=== PATIENT | female | born 1965 | race Caucasian/White ===

== ENCOUNTER 2016-07-22 05:44 | Inpatient (IN) ==
[2016-07-22] MEDS ORDERED: VANCOMYCIN INJ 1,000 MG in SODIUM CHLORIDE 0.9% 250 ML IV ONE (06:00)
[2016-07-22] MEDS ORDERED: SODIUM CHLORIDE 0.9% 100 ML IV ONE (07:19)
[2016-07-22] MEDS ORDERED: VANCOMYCIN 1,000 MG VIAL ONE (07:19)
[2016-07-22] MEDS ORDERED: ceFAZolin 1,000 MG VIAL ONE (07:19)
[2016-07-22] MEDS ORDERED: DIAZEPAM 5 MG TABLET PO ONE (08:34)
[2016-07-22] MEDS ORDERED: FAMOTIDINE 20 MG TABLET PO ONE (08:34)
[2016-07-22] MEDS ORDERED: ALBUTEROL/IPRATROPIUM 3 ML NEB RESP TX ONE (08:37)
[2016-07-22] MEDS ORDERED: DIAZEPAM 5 MG TABLET ONE (08:38)
[2016-07-22] MEDS ORDERED: FAMOTIDINE 20 MG TABLET ONE (08:39)
[2016-07-22] MEDS ORDERED: BUPIVACAINE 0.5% 50 ML VIAL ONE (08:40)
[2016-07-22] MEDS ORDERED: EPINEPHrine 1 MG/ML VIAL ONE (08:40)
[2016-07-22] MEDS ORDERED: MORPHINE 10 MG/1 ML VIAL ONE (08:41)
[2016-07-22] MEDS ORDERED: LACTATED RINGERS 1,000 ML IV SCH (10:30)
[2016-07-22] MEDS ORDERED: ALBUTEROL 2.5 MG/3 ML NEB RESP TX ONE (10:55)
[2016-07-22] MEDS ORDERED: ONDANSETRON 4 MG/2 ML VIAL ONE (11:30)
[2016-07-22] MEDS ORDERED: PROPOFOL 200 MG/20 ML VIAL IV ONE (11:30)
[2016-07-22] MEDS ORDERED: LIDOCAINE 1% 5 ML VIAL ONE (11:30)
[2016-07-22] MEDS ORDERED: PROPOFOL 500 MG/50 ML BOTTLE IV ONE (11:30)
[2016-07-22] MEDS ORDERED: MAGNESIUM HYDROXIDE SUSP 30 ML UDCUP PO PRN (13:03)
[2016-07-22] MEDS ORDERED: TEMAZEPAM 7.5 MG CAPSULE PO PRN (13:03)
[2016-07-22] MEDS ORDERED: ONDANSETRON 4 MG/2 ML VIAL IV PRN (13:03)
[2016-07-22] MEDS ORDERED: NALOXONE 0.4 MG/ML VIAL IV PRN (13:03)
[2016-07-22] MEDS ORDERED: ROPIVACAINE 0.5% 30 ML VIAL ONE (13:14)
--- NOTE | 2016-07-22 13:18 | Anesthesia Post-Op ---
Anesthesia Post OP - Post Ansesthetic Evaluation Patient seen in post op: Yes Resp: within normal limits CV: within normal limits Mental: within normal limits Temp: within normal limits [id number]: within normal limits Nausea and Vomiting: within normal limits Pain: within normal limits
[2016-07-22] MEDS ORDERED: SODIUM CHLORIDE 0.9% 200 ML IV ONE (13:19)
[2016-07-22] MEDS ORDERED: MIDAZOLAM 2 MG/2 ML VIAL ONE (13:19)
[2016-07-22] MEDS ORDERED: fentaNYL 100 MCG/2 ML VIAL ONE (13:19)
[2016-07-22] MEDS ORDERED: LACTATED RINGERS 1,000 ML IV ONE (13:19)
[2016-07-22] MEDS ORDERED: ACETAMINOPHEN 1,000 MG/100 ML VIAL IV ONE (13:20)
[2016-07-22] MEDS ORDERED: TRANEXAMIC ACID 1,000 MG/10 ML VIAL IV ONE (13:21)
--- NOTE | 2016-07-22 14:27 | XRay Report ---
Exam: XR knee 2V LT Date: 07/22/2016 1:04 PM Indication: Joint replacement total knee prosthesis Comparison: 04/06/2016 Technical: AP view lateral Findings: Total knee prosthesis has been placed. Surgical clips and drain are present. There is osteotomy on the posterior aspect patella. There is mild subcutaneous air within the suprapatella bursa. No fractures present. Leg immobilizer noted. Impression: 1. Stable appearance of the left total knee prosthesis 2. Surgical drain and clips present. 3. No fracture dislocation PROCEDURE INTERPRETED AT [facility] Final Report Signed by: Dr. Kris Peck
[2016-07-22] MEDS ORDERED: MORPHINE PCA 30 MG/30 ML SYRINGE IV SCH (15:30)
[2016-07-22] MEDS: SODIUM CHLORIDE 0.9% 1,000 ML IV SCH ×2 (15:45→23:29)
[2016-07-22] MEDS: KETOROLAC 30 MG/1 ML VIAL IV SCH ×2 (15:46→20:55)
[2016-07-22] MEDS: CYCLOBENZAPRINE 10 MG TABLET PO SCH ×2 (15:46→20:53)
--- NOTE | 2016-07-22 17:16 | Pulmonology Progress Note ---
Pulmonary - PN: Subj Interval history: The patient is a 50-year-old white lady that came in today and had a left total knee replacement. She has a very large lady that has osteoarthritis. She is a former smoker that has at least a component of COPD. She does cough and wheeze a good bit at times. She has been using some bronchodilators and did get some steroids preop. She apparently did well with anesthesia today. She is alert now says she is breathing okay. Overall she did well with her surgery Exam (Progress Note) - Constitutional Vitals: Period Temp Pulse Resp BP Sys/Jones Pulse Ox Last 24 Hr 97.2 F-98.4 F 68-93 16-20 93-126/53-73 92-100 General appearance: no acute distress, over weight - Head Head exam: Present: normal inspection, normocephalic - Eye Eye exam: Present: EOMI. Absent: scleral icterus Pupils: Present: LILLIAN - ENT ENT exam: Present: normal exam - Neck Neck exam: Present: normal inspection. Absent: lymphadenopathy, thyromegaly - Respiratory Respiratory exam: Present: rhonchi, other (Her lungs sound better today with less rhonchi and wheezing) - Cardiovascular Cardiovascular exam: Present: regular rate and rhythm. Absent: gallop, systolic murmur - GI/Abdominal GI/Abdominal exam: Present: normal bowel sounds, soft. Absent: organomegaly, tenderness - Extremities Exam Extremities exam: Present: other (The left knee is splinted with the drain in place). Absent: calf tenderness - Neurological Exam Neurological exam: Present: alert, oriented X3, CN II-XII intact - Psychiatric Psychiatric exam: Present: normal affect - Skin Skin exam: Present: warm, dry Assessment and Plan (1) Osteoarthritis of left knee Status: Acute Assessment and plan: The patient has had significant arthritis of her knees and a difficult time getting around. She comes in for knee surgery today. Current Visit: Yes (2) Status post total left knee replacement Status: Acute Assessment and plan: She had a left knee replacement today and is doing well postop. Current Visit: Yes (3) COPD (chronic obstructive pulmonary disease) Status: Acute Assessment and plan: The patient did have some coughing and wheezing recently but is doing better now. Will continue with bronchodilator therapy Current Visit: Yes (4) Obesity Status: Acute Assessment and plan: The patient has a BMI of 58. Current Visit: Yes (5) Diabetes Status: Acute Assessment and plan: Her glucoses will be monitored. Current Visit: Yes Qualifiers: Diabetes mellitus type: type 2
--- NOTE | 2016-07-22 17:27 | Orthopedic Progress Note ---
Assessment and Plan (1) Status post total left knee replacement Status: Acute Assessment and plan: Discontinue Hemovac Routine postop antibiotics DVT prophylaxis Out of bed with therapy twice daily beginning tomorrow Discharge planning Current Visit: Yes Orthopedics - Subjective Interval history: Patient has no complaints postoperatively, pain control. On exam she has some blood on the dressing from a leaking Hemovac Exam - Constitutional Vitals: Period Temp Pulse Resp BP Sys/Jones Pulse Ox Last 24 Hr 97.2 F-98.4 F 68-93 16-20 93-126/53-73 92-100
[2016-07-22 17:48] LABS: Calcium 7.7 MG/DL (8.5-10.1); Osmolality,Calculated 279.3 MOS/KG (273-304); Potassium 3.8 MMOL/L (3.5-5.1)
[2016-07-22] MEDS: ACETAMINOPHEN 500 MG TABLET PO SCH (18:49)
[2016-07-22] MEDS: CIPROFLOXACIN 500 MG TABLET PO SCH (20:52)
[2016-07-22] MEDS: DOCUSATE SODIUM 100 MG CAPSULE PO SCH (20:52)
[2016-07-22] MEDS: ceFAZolin 2,000 MG in PREMIX 1 EACH IV SCH (20:53)
[2016-07-22] MEDS ORDERED: diphenhydrAMINE CAP 25 MG CAPSULE PO PRN (21:00)
[2016-07-23] MEDS: ACETAMINOPHEN 500 MG TABLET PO SCH ×3 (00:56→12:38)
[2016-07-23] MEDS: diphenhydrAMINE CAP 25 MG CAPSULE PO PRN (00:57)
[2016-07-23] MEDS: SODIUM CHLORIDE 0.9% 1,000 ML IV SCH (02:05)
[2016-07-23] MEDS: KETOROLAC 30 MG/1 ML VIAL IV SCH ×2 (04:30→09:20)
[2016-07-23] MEDS: ceFAZolin 2,000 MG in PREMIX 1 EACH IV SCH (05:08)
[2016-07-23 05:09] LABS: Basophils # 0.1 10*3/uL (0.0-0.2); Basophils % 0.6 % (0.0-0.8); Eosinophils # 0.5 10*3/uL (0.0-0.87); Eosinophils % 5.8 % (0.00-10.9); Hematocrit 39.4 VOL% (35.7-47.0); Hemoglobin 12.2 GM/DL (12.0-16.0); Immature Granulocytes % 0.5 %; Immature Granulocytes Absolute 0.04 #; Lymphocytes # 1.1 10*3/uL (1.4-4.0); Lymphocytes % 12.7 % (21.3-54.2); Mean Corpuscular Hemoglobin 29 PG (27-34); Mean Corpuscular Volume 92.3 FL (87-102); Monocytes # 0.9 10*3/uL (0.11-0.8); Neutrophils # 6.2 10*3/uL (1.4-7.4); Neutrophils % 70.4 % (38.7-73.9); Platelet Count 209 T/CUMM (130-400); Red Blood Count 4.27 MC/CUMM (3.8-5.5); Red Cell Distribution Width 14.8 % (9.3-17.3); White Blood Count 8.8 T/CUMM (4-12)
[2016-07-23 05:39] LABS: Calcium 7.4 MG/DL (8.5-10.1)
[2016-07-23 05:40] LABS: Osmolality,Calculated 277.4 MOS/KG (273-304); Potassium 4.3 MMOL/L (3.5-5.1)
[2016-07-23] MEDS: ENOXAPARIN 40 MG/0.4 ML SYRINGE SUBCUT SCH (06:18)
--- NOTE | 2016-07-23 07:46 | Orthopedic Progress Note ---
Assessment and Plan (1) Status post total left knee replacement Status: Acute Assessment and plan: DVT prophylaxis Out of bed with therapy twice daily Discharge planning Current Visit: Yes Orthopedics - Subjective Interval history: Patient complains of mild pain in the knee, otherwise no complaints On exam her dressings clean and dry, she is neurovascularly intact. Exam - Constitutional Vitals: Period Temp Pulse Resp BP Sys/Jones Pulse Ox Last 24 Hr 96.9 F-97.8 F 68-99 16-20 88-126/52-73 89-100 Results - Labs CBC & BMP: 07/23/16 04:55 07/23/16 04:55
--- NOTE | 2016-07-23 08:38 | Pulmonology Progress Note ---
Pulmonary - PN: Subj Interval history: The patient is a 50-year-old white lady that had a left total knee replacement yesterday. She did fairly well through the night and is feeling okay today. Her blood pressure has been on the low side but she is not having any symptoms. She is sitting up eating breakfast now. She feels like her breathing is doing okay. Her knee pain is not too terribly bad today. Exam (Progress Note) - Constitutional Vitals: Period Temp Pulse Resp BP Sys/Jones Pulse Ox Last 24 Hr 96.9 F-97.8 F 65-99 12-20 88-126/43-73 89-100 Exam: General appearance: no acute distress, over weight, she is alert and sitting up and looks comfortable - Head Head exam: Present: normal inspection, normocephalic - Eye Eye exam: Present: EOMI. Absent: scleral icterus Pupils: Present: LILLIAN - ENT ENT exam: Present: normal exam - Neck Neck exam: Present: normal inspection. Absent: lymphadenopathy, thyromegaly - Respiratory Respiratory exam: Present: Her lungs have some minimal wheeze but she is moving air fairly well today. - Cardiovascular Cardiovascular exam: Present: regular rate and rhythm. Absent: gallop, systolic murmur - GI/Abdominal GI/Abdominal exam: Present: normal bowel sounds, soft. Absent: organomegaly, tenderness - Extremities Exam Extremities exam: Present: other (The left knee is splinted with the drain in place). Absent: calf tenderness - Neurological Exam Neurological exam: Present: alert, oriented X3, CN II-XII intact - Psychiatric Psychiatric exam: Present: normal affect - Skin Skin exam: Present: warm, dry Results - Labs CBC & BMP: 07/23/16 04:55 07/23/16 04:55 Assessment and Plan (1) Osteoarthritis of left knee Status: Acute Assessment and plan: The patient has had significant arthritis of her knees and a difficult time getting around. She comes in for knee surgery. She is reasonably comfortable today. Current Visit: Yes (2) Status post total left knee replacement Status: Acute Assessment and plan: She had a left knee replacement and she had a fairly good night. She will start physical therapy today. Current Visit: Yes (3) COPD (chronic obstructive pulmonary disease) Status: Acute Assessment and plan: The patient says she is breathing okay and tolerating her breathing treatments. She still has some mild coughing and wheezing. Overall she looks stable. Current Visit: Yes (4) Obesity Status: Acute Assessment and plan: The patient has a BMI of 58. Current Visit: Yes (5) Diabetes Status: Acute Assessment and plan: Her glucoses will be monitored. Her glucose was 89 this morning. Current Visit: Yes Qualifiers: Diabetes mellitus type: type 2
[2016-07-23] MEDS ORDERED: BREO ELLIPTA INH SCH (09:00)
[2016-07-23] MEDS: THEOPHYLLINE ER 300 MG TABLET PO SCH (09:17)
[2016-07-23] MEDS: CIPROFLOXACIN 500 MG TABLET PO SCH ×2 (09:18→20:21)
[2016-07-23] MEDS: CYCLOBENZAPRINE 10 MG TABLET PO SCH ×3 (09:18→20:21)
[2016-07-23] MEDS: FUROSEMIDE 20 MG TABLET PO SCH (09:18)
[2016-07-23] MEDS: SERTRALINE 100 MG TABLET PO SCH (09:19)
[2016-07-23] MEDS: DOCUSATE SODIUM 100 MG CAPSULE PO SCH ×2 (09:19→20:21)
[2016-07-23] MEDS: MONTELUKAST 10 MG TABLET PO SCH (09:38)
[2016-07-23] MEDS: IPRATROPIUM 500 MCG/2.5 ML NEB RESP TX SCH ×4 (11:10→19:02)
[2016-07-23] MEDS ORDERED: ACETAMINOPHEN 325 MG TABLET PO PRN (13:03)
[2016-07-23] MEDS: CELECOXIB 200 MG CAPSULE PO SCH (15:12)
[2016-07-24] MEDS: diphenhydrAMINE CAP 25 MG CAPSULE PO PRN (04:23)
[2016-07-24] MEDS: ENOXAPARIN 40 MG/0.4 ML SYRINGE SUBCUT SCH (06:52)
--- NOTE | 2016-07-24 07:20 | Orthopedic Progress Note ---
Assessment and Plan (1) Status post total left knee replacement Status: Acute Assessment and plan: Pain control DVT prophylaxis Out of bed with therapy twice daily Discharge tomorrow Current Visit: Yes Orthopedics - Subjective Interval history: Patient has had increasing pain since therapy yesterday. On exam, her dressings clean dry, she is neurovascularly intact. Exam - Constitutional Vitals: Period Temp Pulse Resp BP Sys/Jones Pulse Ox Last 24 Hr 96.7 F-98.0 F 65-98 12-20 89-128/43-71 86-99 Results - Labs CBC & BMP: 07/23/16 04:55 07/23/16 04:55
--- NOTE | 2016-07-24 07:30 | Discharge Summary ---
Hospital Course - Hospital Course Hospital Course: 50-year-old female admitted to the hospital following total knee arthroplasty. She tolerated the procedure well and was transferred to floor in stable condition postoperatively. She received routine antibiotics and thromboprophylaxis. She was seen by physical therapy for total knee rehab. Due to her morbid obesity and medical comorbidities, it is felt that she would benefit from a stay in inpatient rehab. Once a bed was available she was subsequently discharged. At the time of discharge, her wounds clean and dry, she is neurovascularly intact. Diagnosis - Discharge Diagnosis (1) Status post total left knee replacement Status: Acute Specialty Discharge - Follow Up or Referrals Follow up with: Heriberto Rangel MD [Physician] - 08/11/16 12:45 pm (2-3 weeks) Tylor Peters MD [Physician] - (Please call with room number on arrival.) Discharge Plan - Discharge Data Disposition: Disch/Xfer-Ip Rehab Fac Condition at Discharge: Stable Discharge Diet: advance to your usual diet Activity: ambulate only with your walker Hygiene: may shower Weight Bearing at Discharge: weight bear as tolerated Driving: not until seen by doctor Contact your physician if you experience:: fever over 101, Difficulty voiding, Redness or swelling, Nausea/Vomiting, Shortness of breath, Bleeding, pain uncontrolled by pain medications Wound / Dressing Care Instructions: Daily dressing change. Okay to shower. Mary out 08/04/2016 - Discharge Medications New HYDROcodone/ACETAMIN 7.5-325 [Lucien 7.5-325] 1 - 2 tablet PO Q4H PRN #60 tablet PRN Reason: Pain Moderate (4-7) oxyCODONE ER [OxyCONTIN] 10 mg PO Q12HR #15 tablet Aspirin EC Tab 325 mg PO DAILY #30 tablet Docusate Sodium Cap [Colace Cap] 100 mg PO BID capsule Continue Umeclidinium [place] [Incruse Ellipta] 1 puff INH DAILY Theophylline ER Tab 400 mg PO DAILY Furosemide Tab [Lasix Tab] 20 mg PO DAILY diphenhydrAMINE HCl [diphenhydrAMINE Tab] 25 mg PO BEDTIME PRN PRN Reason: Insomnia Sertraline HCl 50 mg PO DAILY Cyclobenzaprine [Flexeril] 10 mg PO TID Ciprofloxacin Tab [Cipro Tab] 500 mg PO BID Fluticasone/Vilanterol [Breo Ellipta 100-25 Mcg INH] 1 puff INH DAILY Montelukast Sodium 10 mg PO DAILY - Follow Up or Referral Follow Up: Heriberto Rangel MD [Physician] - 08/11/16 12:45 pm (2-3 weeks) Tylor Peters MD [Physician] - (Please call with room number on arrival.) - Forms/Instructions Instructions: Clindamycin (On the skin), Total Knee Replacement (DC), Obesity ( DC) Additional Discharge Instructions: Weight-bear as tolerated left lower extremity , total knee protocol Exam - Constitutional Vitals: Period Temp Pulse Resp BP Sys/Jones Pulse Ox Last 24 Hr 96.7 F-98.0 F 65-98 12-20 89-128/43-71 86-99 Discharge Results Procedures and tests throughout hospitalization: Pending Orders 07/24/16 04:00 Comp Blood Count Auto Diff IN AM 07/25/16 04:00 Comp Blood Count Auto Diff IN AM DS: Provider Date of admission: 07/22/16 05:44 Primary care physician: Cata Scott MD Attending physician on admission: Heriberto Rangel MD Consults: 07/22/16 13:03 Consult to Case Mgmt/Social Srvs [CONS] Routine Reason for Case Mgmt/Social Srvs: Rehab Home Health Equipment Consult Comment: Bedside Commode, CPM, Walker Consult to Occupational Therapy [CONS] Routine Reason for Occupational Therapy: Evaluate and Treat Consult Comment: ADL's Consult to Physical Therapy [CONS] Routine Reason for Physical Therapy: Evaluate and Treat Gait Training Start Therapy: Today 07/22/16 13:04 Consult to Physician [CONS] Routine Comment: Consulting Provider: Tylor Peters Consulting Provider Notified: Yes When should Consulting Provider be notified: Now Person Notified: cheng sahu Date Notified: 07/22/16 Time Notified: 14:56 07/22/16 14:49 Consult to Pastoral Services [CONS] Routine Comment: Pastoral Screen: Request Maths Tutor Visit Pastoral Screen Source of Request: Patient 07/23/16 14:09 Consult to Case Mgmt/Social Srvs [CONS] Routine Reason for Case Mgmt/Social Srvs: Rehab Consult Comment: Re[facility] - [facility] Discharging clinician: Heriberto Rangel MD
[2016-07-24 07:34] LABS: Basophils # 0.1 10*3/uL (0.0-0.2); Basophils % 0.6 % (0.0-0.8); Eosinophils # 0.9 10*3/uL (0.0-0.87); Eosinophils % 9.9 % (0.00-10.9); Hemoglobin 11.9 GM/DL (12.0-16.0); Immature Granulocytes % 0.4 %; Immature Granulocytes Absolute 0.04 #; Lymphocytes # 1.2 10*3/uL (1.4-4.0); Lymphocytes % 12.9 % (21.3-54.2); Mean Corpuscular HGB Conc 31.3 GM/DL (32-36); Mean Corpuscular Hemoglobin 28 PG (27-34); Mean Platelet Volume 12.6 FL (9.6-12.0); Monocytes # 0.9 10*3/uL (0.11-0.8); Monocytes % 9.7 % (1.7-12.7); Neutrophils % 66.5 % (38.7-73.9); Platelet Count 211 T/CUMM (130-400); Red Blood Count 4.22 MC/CUMM (3.8-5.5); Red Cell Distribution Width 14.7 % (9.3-17.3); White Blood Count 9.1 T/CUMM (4-12)
[2016-07-24] MEDS: IPRATROPIUM 500 MCG/2.5 ML NEB RESP TX SCH ×2 (08:50→11:00)
--- NOTE | 2016-07-24 08:51 | Pulmonology Progress Note ---
Pulmonary - PN: Subj Interval history: The patient is a 50-year-old white lady that had a left total knee replacement. She is doing well postop and moving around better. His knee swelling is much better. She has had some asthmatic bronchitis but her breathing is doing better. She is coughing okay and not having much wheezing now. Overall she is doing well. Exam (Progress Note) - Constitutional Vitals: Period Temp Pulse Resp BP Sys/Jones Pulse Ox Last 24 Hr 96.7 F-98.0 F 72-98 12-20 106-135/56-78 90-99 Exam: General appearance: no acute distress, over weight, she is alert and sitting up and looks comfortable. She seems to be moving around better. - Head Head exam: Present: normal inspection, normocephalic - Eye Eye exam: Present: EOMI. Absent: scleral icterus Pupils: Present: LILLIAN - ENT ENT exam: Present: normal exam - Neck Neck exam: Present: normal inspection. Absent: lymphadenopathy, thyromegaly - Respiratory Respiratory exam: Present: Her lungs have good breath sounds bilaterally and her lungs sound better. She has very minimal rhonchi. - Cardiovascular Cardiovascular exam: Present: regular rate and rhythm. Absent: gallop, systolic murmur - GI/Abdominal GI/Abdominal exam: Present: normal bowel sounds, soft. Absent: organomegaly, tenderness - Extremities Exam Extremities exam: Present: other (The left knee looks good and the wound is doing well. The swelling is going down. ) - Neurological Exam Neurological exam: Present: alert, oriented X3, CN II-XII intact - Psychiatric Psychiatric exam: Present: normal affect - Skin Skin exam: Present: warm, dry Results - Labs CBC & BMP: 07/24/16 04:38 07/23/16 04:55 Assessment and Plan (1) Osteoarthritis of left knee Status: Acute Assessment and plan: The patient has had significant arthritis of her knees and a difficult time getting around. She comes in for knee surgery. She is doing well postop and will continue with physical therapy. Current Visit: Yes (2) Status post total left knee replacement Status: Acute Assessment and plan: She had a left knee replacement and is doing well postop. She is doing well with physical therapy. Current Visit: Yes (3) COPD (chronic obstructive pulmonary disease) Status: Acute Assessment and plan: The patient says she is breathing okay and tolerating her breathing treatments. She is moving air well and her breathing is stable. Current Visit: Yes (4) Obesity Status: Acute Assessment and plan: The patient has a BMI of 58. Current Visit: Yes (5) Diabetes Status: Acute Assessment and plan: Her glucoses will be monitored. Her glucose was 89 this morning. Current Visit: Yes Specialty Discharge - Follow Up or Referrals Follow up with: Heriberto Rangel MD [Physician] - 08/11/16 12:45 pm (2-3 weeks)
[2016-07-24] MEDS: CELECOXIB 200 MG CAPSULE PO SCH (09:00)
[2016-07-24] MEDS ORDERED: oxyCODONE ER 10 MG TABLET PO SCH (09:00)
[2016-07-24] MEDS: CIPROFLOXACIN 500 MG TABLET PO SCH (09:00)
[2016-07-24] MEDS: CYCLOBENZAPRINE 10 MG TABLET PO SCH (09:01)
[2016-07-24] MEDS: FUROSEMIDE 20 MG TABLET PO SCH (09:01)
[2016-07-24] MEDS: MONTELUKAST 10 MG TABLET PO SCH (09:02)
[2016-07-24] MEDS: SERTRALINE 100 MG TABLET PO SCH (09:03)
[2016-07-24] MEDS: DOCUSATE SODIUM 100 MG CAPSULE PO SCH (09:09)
[2016-07-24] MEDS: THEOPHYLLINE ER 300 MG TABLET PO SCH (09:09)
[2016-07-24 11:29] VITALS: BP 132/72
== END 2016-07-24 13:40 | DRG 302 ==
LOC: N.SDSINP 05:44 → N.3E 14:34
PROVIDERS: ADMIT Orthopaedic Surgery; ATTEND Orthopaedic Surgery

== ENCOUNTER 2017-04-30 12:06 | Inpatient (IN) ==
[2017-04-30] MEDS ORDERED: methylPREDNISolone SOD SUC 125 MG/2 ML VIAL IV STA (12:22)
[2017-04-30] MEDS ORDERED: LEVOFLOXACIN INJ 750 MG in PREMIX 1 EACH IV STA (12:22)
[2017-04-30] MEDS ORDERED: MAGNESIUM SULF RIDER 2 GM in PREMIX 1 EACH IV STA (12:24)
[2017-04-30] MEDS ORDERED: MAGNESIUM SULF RIDER 50 ML IV ONE (12:28)
[2017-04-30] MEDS ORDERED: methylPREDNISolone SOD SUC 125 MG/2 ML VIAL ONE (12:28)
[2017-04-30] MEDS ORDERED: ALBUTEROL 2.5 MG/3 ML NEB RESP TX SCH (12:30)
[2017-04-30] MEDS ORDERED: KETOROLAC 30 MG/1 ML VIAL IV STA (12:38)
[2017-04-30] MEDS ORDERED: KETOROLAC 30 MG/1 ML VIAL ONE (12:39)
[2017-04-30] MEDS ORDERED: FUROSEMIDE 40 MG/4 ML VIAL IV STA (13:08)
[2017-04-30] MEDS ORDERED: LEVOFLOXACIN INJ 150 ML IV ONE (13:29)
[2017-04-30] MEDS ORDERED: FUROSEMIDE 40 MG/4 ML VIAL ONE (13:29)
[2017-04-30 13:44] LABS: Basophils # 0.1 10*3/uL (0.0-0.2); Basophils % 0.5 % (0.0-0.8); Eosinophils # 0.2 10*3/uL (0.0-0.87); Eosinophils % 1.6 % (0.00-10.9); Hematocrit 55.5 VOL% (35.7-47.0); Immature Granulocytes % 0.5 %; Immature Granulocytes Absolute 0.05 #; Lymphocytes # 0.7 10*3/uL (1.4-4.0); Lymphocytes % 7.4 % (21.3-54.2); Mean Corpuscular HGB Conc 28.6 GM/DL (32-36); Mean Corpuscular Hemoglobin 27 PG (27-34); Mean Corpuscular Volume 93.1 FL (87-102); Mean Platelet Volume 11.2 FL (9.6-12.0); Monocytes # 0.6 10*3/uL (0.11-0.8); Monocytes % 6.4 % (1.7-12.7); Neutrophils # 7.8 10*3/uL (1.4-7.4); Neutrophils % 83.6 % (38.7-73.9); Platelet Count 242 T/CUMM (130-400); Red Blood Count 5.96 MC/CUMM (3.8-5.5); White Blood Count 9.3 T/CUMM (4-12)
[2017-04-30 13:48] LABS: INR 1.1; PT Patient Result 11.2 SECS; Partial Thromboplastin Time 25.1 SECS (0-40)
[2017-04-30 13:51] LABS: Hemoglobin 15.9 GM/DL (12.0-16.0)
[2017-04-30 14:05] LABS: Alanine Aminotransferase 14 U/L (13-56); Albumin 2.8 G/DL (3.4-5.0); Alkaline Phosphatase 110 U/L (45-117); Aspartate Amino Transferase 22 U/L (0-37); Blood Urea Nitrogen 9 MG/DL (7-18); Calcium 8.7 MG/DL (8.5-10.1); Glucose 100 MG/DL (74-106); Osmolality,Calculated 275.5 MOS/KG (273-304); Potassium 3.8 MMOL/L (3.5-5.1); Sodium 139 MMOL/L (136-145); Troponin I Only < 0.015 NG/ML (0.00-0.045)
[2017-04-30 14:24] LABS: Barbiturates Screen,Urine Negative (Negative); Benzodiazepines Screen,Urine Positive (Negative); Cannabinoid Screen,Urine Negative (Negative); Opiate Screen,Urine Negative (Negative); Phencyclidine Screen,Urine Negative (Negative)
[2017-04-30 14:35] LABS: Apearance,Urine CLEAR (Clear); Bacteria,Urine Occasional /HPF (Few); Bilirubin,Urine Negative (Negative); Blood, Urine Moderate mg/dL (Negative); Glucose,Urine (UA) Negative (Negative); Ketones,Urine Negative (Negative); Mucus,Urine Occasional /LPF (Occasional); Nitrite,Urine Negative (Negative); Protein,Urine 100 MG/DL; RBC,Urine 29 /HPF (0-4); Squamous Epithelial Cell,Urine Occasional /HPF (0-10); Urine Color Yellow (Yellow); WBC,Urine <1 /HPF (0-6)
[2017-04-30 15:45] LABS: ABG Base Excess 9.7 MMOL/L (-2.5-2.5); ABG HCO3 33.2 MMOL/L (20-26); ABG PH 7.315 (7.35-7.45); ABG PO2 62.5 MM HG (80-95)
[2017-04-30 15:50] LABS: ABG PCO2 81.1 MM HG (35-48)
[2017-04-30] MEDS ORDERED: DOCUSATE SODIUM 100 MG CAPSULE PO PRN (16:01)
[2017-04-30] MEDS ORDERED: DEXTROSE 50% 25 GM/50 ML VIAL IV PRN (16:07)
[2017-04-30] MEDS ORDERED: GLUCAGON 1 MG VIAL IM PRN (16:07)
[2017-04-30] MEDS ORDERED: ENOXAPARIN 100 MG/ML SYRINGE SUBCUT STA (18:27)
[2017-04-30] MEDS ORDERED: INFLUENZA VIRUS VACCINE 0.5 ML SYRINGE IM ONE (18:33)
[2017-04-30] MEDS ORDERED: methylPREDNISolone SOD SUC 40 MG/1 ML VIAL ONE (18:33)
[2017-04-30] MEDS: INSULIN REGULAR 100 UNIT/ML SUBCUT SCH ×2 (18:35→20:03)
[2017-04-30] MEDS: LEVALBUTEROL 1.25 MG/3 ML NEB RESP TX SCH ×2 (19:27→23:54)
[2017-04-30] MEDS: methylPREDNISolone SOD SUC 40 MG/1 ML VIAL IV SCH (20:19)
[2017-04-30] MEDS: LORazepam 2 MG/1 ML VIAL IV PRN (21:11)
[2017-05-01] MEDS: ACETAMINOPHEN 325 MG TABLET PO PRN (00:07)
[2017-05-01] MEDS: LEVALBUTEROL 1.25 MG/3 ML NEB RESP TX SCH ×5 (03:43→19:23)
[2017-05-01 05:31] LABS: ABG Base Excess 12.9 MMOL/L (-2.5-2.5); ABG HCO3 42.3 MMOL/L (20-26); ABG Oxygen Saturation 89.7 % (95-100); ABG PH 7.372 (7.35-7.45); ABG PO2 63.1 MM HG (80-95); ABG TCO2 44.6 MMOL/L (23-27)
[2017-05-01 05:41] LABS: Calcium 8.3 MG/DL (8.5-10.1); Osmolality,Calculated 280.3 MOS/KG (273-304); Potassium 4.6 MMOL/L (3.5-5.1)
[2017-05-01 05:55] LABS: ABG PCO2 74.5 MM HG (35-48)
[2017-05-01] MEDS: methylPREDNISolone SOD SUC 40 MG/1 ML VIAL IV SCH ×3 (05:59→22:09)
[2017-05-01] MEDS: LORazepam 2 MG/1 ML VIAL IV PRN ×2 (06:13→23:50)
[2017-05-01 06:30] LABS: Basophils % 0.2 % (0.0-0.8); Hematocrit 51.4 VOL% (35.7-47.0); Hemoglobin 15.6 GM/DL (12.0-16.0); Immature Granulocytes % 0.4 %; Immature Granulocytes Absolute 0.02 #; Lymphocytes # 0.4 10*3/uL (1.4-4.0); Lymphocytes % 8.2 % (21.3-54.2); Mean Corpuscular HGB Conc 30.4 GM/DL (32-36); Mean Corpuscular Hemoglobin 28 PG (27-34); Mean Corpuscular Volume 90.7 FL (87-102); Mean Platelet Volume 11.4 FL (9.6-12.0); Monocytes # 0.1 10*3/uL (0.11-0.8); Neutrophils # 4.4 10*3/uL (1.4-7.4); Neutrophils % 89.2 % (38.7-73.9); Platelet Count 236 T/CUMM (130-400); Red Blood Count 5.67 MC/CUMM (3.8-5.5); Red Cell Distribution Width 17.2 % (9.3-17.3)
[2017-05-01] MEDS: INSULIN REGULAR 100 UNIT/ML SUBCUT SCH ×4 (08:05→21:58)
[2017-05-01] MEDS: ENOXAPARIN 40 MG/0.4 ML SYRINGE SUBCUT SCH ×2 (09:01→22:11)
[2017-05-01] MEDS: PANTOPRAZOLE 40 MG TABLET PO SCH (09:01)
[2017-05-01] MEDS: POTASSIUM CHLORIDE 20 MEQ TABLET PO SCH ×2 (09:01→22:09)
[2017-05-01] MEDS: LEVOFLOXACIN INJ 500 MG in PREMIX 1 EACH IV SCH (11:54)
[2017-05-01] MEDS: THEOPHYLLINE ER (24 HR) 400 MG TABLET PO SCH (11:55)
[2017-05-01] MEDS: GABAPENTIN 400 MG CAPSULE PO SCH ×2 (16:39→22:11)
[2017-05-01] MEDS: FUROSEMIDE 40 MG/4 ML VIAL IV SCH (16:39)
[2017-05-01] MEDS: MONTELUKAST 10 MG TABLET PO SCH (22:09)
[2017-05-01] MEDS: SERTRALINE 50 MG TABLET PO SCH (22:10)
[2017-05-02] MEDS: LEVALBUTEROL 1.25 MG/3 ML NEB RESP TX SCH ×7 (00:12→23:54)
[2017-05-02 03:28] LABS: ABG Base Excess 13.4 MMOL/L (-2.5-2.5); ABG HCO3 37.1 MMOL/L (20-26); ABG Oxygen Saturation 92.2 % (95-100); ABG PH 7.328 (7.35-7.45); ABG PO2 68.8 MM HG (80-95); ABG TCO2 38.7 MMOL/L (23-27)
[2017-05-02 03:34] LABS: ABG PCO2 86.8 MM HG (35-48)
[2017-05-02] MEDS: ACETAMINOPHEN 325 MG TABLET PO PRN (04:22)
[2017-05-02] MEDS: methylPREDNISolone SOD SUC 40 MG/1 ML VIAL IV SCH ×3 (05:38→21:11)
[2017-05-02 06:11] LABS: Calcium 8.6 MG/DL (8.5-10.1); Osmolality,Calculated 280.4 MOS/KG (273-304); Potassium 4.5 MMOL/L (3.5-5.1)
[2017-05-02] MEDS: FUROSEMIDE 40 MG/4 ML VIAL IV SCH ×2 (08:44→16:41)
[2017-05-02] MEDS: THEOPHYLLINE ER (24 HR) 400 MG TABLET PO SCH (08:44)
[2017-05-02] MEDS: PANTOPRAZOLE 40 MG TABLET PO SCH (08:44)
[2017-05-02] MEDS: GABAPENTIN 400 MG CAPSULE PO SCH ×3 (08:44→21:11)
[2017-05-02] MEDS: ENOXAPARIN 40 MG/0.4 ML SYRINGE SUBCUT SCH ×2 (08:45→21:11)
[2017-05-02] MEDS: INSULIN REGULAR 100 UNIT/ML SUBCUT SCH ×4 (08:45→21:24)
[2017-05-02] MEDS: LEVOFLOXACIN INJ 500 MG in PREMIX 1 EACH IV SCH (09:34)
[2017-05-02] MEDS: POTASSIUM CHLORIDE 20 MEQ TABLET PO SCH ×2 (09:35→21:11)
[2017-05-02 09:41] LABS: Hematocrit 55.3 VOL% (35.7-47.0); Hemoglobin 15.8 GM/DL (12.0-16.0); Immature Granulocytes % 0.3 %; Immature Granulocytes Absolute 0.02 #; Lymphocytes # 0.4 10*3/uL (1.4-4.0); Lymphocytes % 5.9 % (21.3-54.2); Mean Corpuscular HGB Conc 28.6 GM/DL (32-36); Mean Corpuscular Hemoglobin 27 PG (27-34); Mean Corpuscular Volume 93.7 FL (87-102); Mean Platelet Volume 11.4 FL (9.6-12.0); Monocytes # 0.2 10*3/uL (0.11-0.8); Neutrophils # 6.4 10*3/uL (1.4-7.4); Neutrophils % 90.8 % (38.7-73.9); Platelet Count 236 T/CUMM (130-400); Red Cell Distribution Width 17.2 % (9.3-17.3); White Blood Count 7.1 T/CUMM (4-12)
[2017-05-02 09:49] LABS: Giant Platelets Few; Hypochromasia Slight; Lymphocytes 11 % (20-55); Platelet Estimate Adequate; Segmented Neutrophils 87 % (50-85); Total Cells Counted 100
[2017-05-02] MEDS: MONTELUKAST 10 MG TABLET PO SCH (21:11)
[2017-05-02] MEDS: SERTRALINE 50 MG TABLET PO SCH (21:12)
[2017-05-02] MEDS: LORazepam 2 MG/1 ML VIAL IV PRN (21:37)
[2017-05-03] MEDS: LEVALBUTEROL 1.25 MG/3 ML NEB RESP TX SCH ×3 (03:29→11:00)
[2017-05-03] MEDS: methylPREDNISolone SOD SUC 40 MG/1 ML VIAL IV SCH ×2 (05:17→13:52)
[2017-05-03] MEDS: INSULIN REGULAR 100 UNIT/ML SUBCUT SCH ×2 (09:11→13:50)
[2017-05-03] MEDS: ENOXAPARIN 40 MG/0.4 ML SYRINGE SUBCUT SCH (09:18)
[2017-05-03] MEDS: PANTOPRAZOLE 40 MG TABLET PO SCH (09:18)
[2017-05-03] MEDS: GABAPENTIN 400 MG CAPSULE PO SCH (09:18)
[2017-05-03] MEDS: POTASSIUM CHLORIDE 20 MEQ TABLET PO SCH (09:19)
[2017-05-03] MEDS: THEOPHYLLINE ER (24 HR) 400 MG TABLET PO SCH (09:27)
[2017-05-03 10:41] VITALS: BP 111/68
[2017-05-03] MEDS: FUROSEMIDE 40 MG/4 ML VIAL IV SCH (11:04)
[2017-05-03] MEDS: LEVOFLOXACIN INJ 500 MG in PREMIX 1 EACH IV SCH (11:28)
[2017-05-03] MEDS ORDERED: NYSTATIN POWDER 15 GM BOTTLE TOP SCH (14:30)
== END 2017-05-03 14:55 | disposition home health service (06) | DRG 140 ==
LOC: EDUNIT# → EDBD → N.ED 12:06 → N.EDINP 16:27 → SUATTDRO 16:27 → N.ICU 16:50 → N.4E 05-02 15:51
PROVIDERS: ADMIT Internal Medicine Infectious Disease; ATTEND Internal Medicine

== ENCOUNTER 2018-06-29 13:30 | Inpatient (IN) ==
[2018-06-29] MEDS ORDERED: FUROSEMIDE 100 MG/10 ML VIAL IV STA (13:54)
[2018-06-29] MEDS ORDERED: methylPREDNISolone SOD SUC 125 MG/2 ML VIAL IV STA (13:54)
[2018-06-29] MEDS ORDERED: ALBUTEROL NEB SOLN 5 MG/ML 20 ML/BOTTLE RESP TX SCH (14:00)
[2018-06-29 14:19] LABS: Basophils % 0.4 % (0.0-0.8); Eosinophils # 0.2 10*3/uL (0.0-0.87); Eosinophils % 2.2 % (0.00-10.9); Hematocrit 49.4 VOL% (35.7-47.0); Hemoglobin 14.5 GM/DL (12.0-16.0); Immature Granulocytes % 0.4 %; Immature Granulocytes Absolute 0.04 #; Lymphocytes # 1.6 10*3/uL (1.4-4.0); Mean Corpuscular HGB Conc 29.4 GM/DL (32-36); Mean Corpuscular Volume 100.4 FL (87-102); Mean Platelet Volume 11.2 FL (9.6-12.0); Monocytes % 8.9 % (1.7-12.7); Neutrophils % 71.1 % (38.7-73.9); Platelet Count 262 T/CUMM (130-400); Red Blood Count 4.92 MC/CUMM (3.8-5.5); Red Cell Distribution Width 13.2 % (9.3-17.3); White Blood Count 9.2 T/CUMM (4-12)
[2018-06-29 14:30] LABS: PT Patient Result 10.7 SECS
[2018-06-29 14:43] LABS: Alanine Aminotransferase 36 U/L (13-56); Alkaline Phosphatase 96 U/L (45-117); Aspartate Amino Transferase 25 U/L (0-37); Blood Urea Nitrogen 9 MG/DL (7-18); Calcium 8.5 MG/DL (8.5-10.1); Glucose 97 MG/DL (74-106); Osmolality,Calculated 279.3 MOS/KG (273-304); Total Protein 7.5 G/DL (6.4-8.3)
[2018-06-29 14:49] LABS: Apearance,Urine CLEAR (Clear); Bilirubin,Urine Negative (Negative); Blood, Urine Small mg/dL (Negative); Glucose,Urine (UA) Negative (Negative); Ketones,Urine Negative (Negative); Mucus,Urine Occasional /LPF (Occasional); Nitrite,Urine Negative (Negative); Protein,Urine Negative; RBC,Urine 2 /HPF (0-4); Squamous Epithelial Cell,Urine Occasional /HPF (0-10); Urine Color Yellow (Yellow); Urine Specific Gravity 1.009 (1.001-1.035); Urine Urobilinogen < 2.0 EU/DL (0.2-1.0); WBC,Urine 5 /HPF (0-6)
[2018-06-29 14:55] LABS: Barbiturates Screen,Urine Negative (Negative); Benzodiazepines Screen,Urine Negative (Negative); Cannabinoid Screen,Urine Negative (Negative); Opiate Screen,Urine Positive (Negative); Phencyclidine Screen,Urine Negative (Negative)
[2018-06-29] MEDS ORDERED: ONDANSETRON 4 MG/2 ML VIAL IV PRN (16:40)
[2018-06-29] MEDS: LEVOFLOXACIN INJ 750 MG in PREMIX 1 EACH IV SCH (17:47)
[2018-06-29] MEDS: ENOXAPARIN 40 MG/0.4 ML SYRINGE SUBCUT SCH (18:40)
[2018-06-29] MEDS: methylPREDNISolone SOD SUC 40 MG/1 ML VIAL IV SCH ×2 (19:50→20:23)
[2018-06-29] MEDS: ALBUTEROL/IPRATROPIUM 3 ML NEB RESP TX PRN (23:27)
[2018-06-30] MEDS ORDERED: PNEUMOCOCCAL VACCINE (23 VALENT) 0.5 ML VIAL IM ONE (01:42)
[2018-06-30] MEDS: ALBUTEROL/IPRATROPIUM 3 ML NEB RESP TX PRN ×3 (04:00→19:28)
[2018-06-30] MEDS: methylPREDNISolone SOD SUC 40 MG/1 ML VIAL IV SCH ×3 (04:05→20:40)
[2018-06-30 05:41] LABS: Calcium 8.4 MG/DL (8.5-10.1); Osmolality,Calculated 280.4 MOS/KG (273-304); Risk Ratio 4.51; Thyroid Stimulating Hormone 0.34 uIU/ml (0.358-3.74)
[2018-06-30 06:38] LABS: Basophils % 0.1 % (0.0-0.8); Hematocrit 46.8 VOL% (35.7-47.0); Hemoglobin 14.1 GM/DL (12.0-16.0); Immature Granulocytes % 0.4 %; Immature Granulocytes Absolute 0.04 #; Lymphocytes # 0.8 10*3/uL (1.4-4.0); Lymphocytes % 8.1 % (21.3-54.2); Mean Corpuscular HGB Conc 30.1 GM/DL (32-36); Mean Corpuscular Volume 98.7 FL (87-102); Mean Platelet Volume 11.6 FL (9.6-12.0); Monocytes % 4.2 % (1.7-12.7); Neutrophils % 87.2 % (38.7-73.9); Platelet Count 273 T/CUMM (130-400); Red Blood Count 4.74 MC/CUMM (3.8-5.5); Red Cell Distribution Width 13.3 % (9.3-17.3); White Blood Count 9.8 T/CUMM (4-12)
[2018-06-30] MEDS: THEOPHYLLINE ER (24 HR) 400 MG TABLET PO SCH (08:46)
[2018-06-30] MEDS: MONTELUKAST 10 MG TABLET PO SCH (08:47)
[2018-06-30] MEDS: FUROSEMIDE 40 MG TABLET PO SCH ×2 (08:47→16:00)
[2018-06-30] MEDS: ROSUVASTATIN 20 MG TABLET PO SCH (08:47)
[2018-06-30] MEDS: ASPIRIN EC 81 MG TABLET PO SCH (08:47)
[2018-06-30] MEDS: CLOPIDOGREL 75 MG TABLET PO SCH ×2 (08:47→08:52)
[2018-06-30] MEDS: PANTOPRAZOLE 40 MG TABLET PO SCH (08:47)
[2018-06-30] MEDS: FLUTICASONE 50 MCG NASAL SPRAY 16 GM BOTTLE BOTH NARES SCH (08:47)
[2018-06-30] MEDS: ZINC OXIDE PASTE 113 GM TUBE TOP SCH ×2 (13:43→20:40)
[2018-06-30] MEDS: LEVOFLOXACIN INJ 750 MG in PREMIX 1 EACH IV SCH (17:55)
[2018-06-30] MEDS: ENOXAPARIN 40 MG/0.4 ML SYRINGE SUBCUT SCH (18:50)
[2018-06-30] MEDS: GABAPENTIN 400 MG CAPSULE PO SCH (20:40)
[2018-07-01 04:27] LABS: Hematocrit 49.2 VOL% (35.7-47.0); Immature Granulocytes % 0.5 %; Immature Granulocytes Absolute 0.05 #; Lymphocytes # 0.9 10*3/uL (1.4-4.0); Lymphocytes % 9.1 % (21.3-54.2); Mean Corpuscular HGB Conc 30.1 GM/DL (32-36); Mean Platelet Volume 11.6 FL (9.6-12.0); Monocytes % 4.3 % (1.7-12.7); Neutrophils % 86.1 % (38.7-73.9); Platelet Count 340 T/CUMM (130-400); Red Blood Count 5.02 MC/CUMM (3.8-5.5); Red Cell Distribution Width 13.2 % (9.3-17.3); White Blood Count 9.7 T/CUMM (4-12)
[2018-07-01] MEDS: methylPREDNISolone SOD SUC 40 MG/1 ML VIAL IV SCH ×2 (04:54→12:01)
[2018-07-01 04:57] LABS: Calcium 8.8 MG/DL (8.5-10.1); Osmolality,Calculated 278.7 MOS/KG (273-304)
[2018-07-01 05:00] LABS: Hemoglobin 14.8 GM/DL (12.0-16.0)
[2018-07-01] MEDS: ALBUTEROL/IPRATROPIUM 3 ML NEB RESP TX PRN (07:08)
[2018-07-01] MEDS: FLUTICASONE 50 MCG NASAL SPRAY 16 GM BOTTLE BOTH NARES SCH (09:13)
[2018-07-01] MEDS: GABAPENTIN 400 MG CAPSULE PO SCH (09:14)
[2018-07-01] MEDS: ZINC OXIDE PASTE 113 GM TUBE TOP SCH (09:14)
[2018-07-01] MEDS: MONTELUKAST 10 MG TABLET PO SCH (09:14)
[2018-07-01] MEDS: THEOPHYLLINE ER (24 HR) 400 MG TABLET PO SCH (09:14)
[2018-07-01] MEDS: FUROSEMIDE 40 MG TABLET PO SCH (09:15)
[2018-07-01] MEDS: PANTOPRAZOLE 40 MG TABLET PO SCH (09:15)
[2018-07-01] MEDS: CLOPIDOGREL 75 MG TABLET PO SCH (09:15)
[2018-07-01] MEDS: ASPIRIN EC 81 MG TABLET PO SCH (09:15)
[2018-07-01] MEDS: ROSUVASTATIN 20 MG TABLET PO SCH (09:15)
[2018-07-01 12:02] VITALS: BP 126/81
== END 2018-07-01 12:55 | disposition home health service (06) | DRG 191 ==
LOC: EDUNIT# → N.ED 13:30 → N.EDINP 16:18 → N.3E 18:58
PROVIDERS: ADMIT Internal Medicine; ATTEND Internal Medicine